=== PATIENT | female | born 1965 | race African-American/Black ===

== ENCOUNTER 2022-02-16 08:11 | Emergency (ER) | payer SELFPAY ==
[2022-02-16] MEDS ORDERED: Rocuronium Bromide 10 MG/ML (10ML VIAL) ONE (08:20)
[2022-02-16] MEDS ORDERED: Sodium Bicarb 50 MEQ/50 ML Abboject 8.4% SYRINGE ONE (08:20)
[2022-02-16] MEDS ORDERED: Calcium Chloride 1 GM/10 ML Abboject SYRINGE ONE (08:20)
[2022-02-16] MEDS ORDERED: EPINEPHrine 1 MG/10 ML Abboject SYRINGE ONE (08:20)
[2022-02-16 09:27] LABS: Hemoglobin 15.9 g/dL (12.0-16.0); Mean Corpuscular HGB CONC 31.6 g/dL (32.0-36.0); Mean Corpuscular Hemoglobin 30.1 pg (27.0-31.0); Mean Corpuscular Volume 95.3 fL (78.0-98.0); Mean Platelet Volume 10.6 fL (7.4-10.4); Platelet Count 15 thou/uL (130-400); RBC Distribution Width 15.1 % (11.5-14.5); Red Blood Cell (RBC) Count 5.29 mill/uL (4.20-5.40); White Blood Cell (WBC) Count 4.6 thou/uL (4.8-10.8)
[2022-02-16 10:42] LABS: Band 10 % (5-11); Burr Cells MODERATE= 6-15 cells (100X) (0-1/hpf); Lymphocytes 39 % (21-51); MDiff Complete? YES; Metamyelocyte 1 % (0-0); Monocytes 10 % (0-10); Myelocyte 2 % (0-0); Neutrophil 37 % (42-75); Nucleated RBC 5 % (0); Platelet Morphology Comment Appears Decreased; Polychromasia SLIGHT = 2-3 cells (100X) (0-2/hpf); Reactive Lymphocytes 1 % (0-10)
== END 2022-02-16 09:11 | disposition expired ==
LOC: ERS 08:11
DX: I46.8 Cardiac arrest due to other underlying condition (principal); S82.91XB Unspecified fracture of right lower leg, initial encounter for open fracture type I or II; S52.91XA Unspecified fracture of right forearm, initial encounter for closed fracture; R41.82 Altered mental status, unspecified; S27.0XXA Traumatic pneumothorax, initial encounter; V89.9XXA Person injured in unspecified vehicle accident, initial encounter
CPT/HCPCS: 27825; 31500; 32551; 36415; 36430; 85025; 86850; 86900; 86901; 96374; 96375; 96376; G0390; J0171; P9016; P9048